=== PATIENT | male | born 1965 | race Caucasian/White ===

== ENCOUNTER 2016-09-25 11:35 | Day surgery (SDC) | payer OTHER ==
[~2016-09-25] VITALS: Ht 175.3 cm; Wt 88.2 kg
[2016-09-25 12:22] VITALS: Ht 175.3 cm; Wt 88.2 kg
[2016-09-25] MEDS ORDERED: NO HOME MEDS (12:29)
[2016-09-25 12:54] VITALS: BP 151/98; PULSE 54; RESP 18
[2016-09-25] MEDS ORDERED: MIDAZOLAM 1 MG/ML 2 ML INJ ONE ×2 (13:40→13:41)
[2016-09-25] MEDS ORDERED: FENTAnyl 50 MCG/ML VIAL ONE (13:40)
--- NOTE | 2016-09-25 13:54 | GILP ---
DATE OF PROCEDURE: NAME OF PROCEDURE: Colonoscopy. SURGEON: Ashanti Borrero MD PREOPERATIVE DIAGNOSIS: Screening colonoscopy. POSTOPERATIVE DIAGNOSES 1. Colonoscopy all the way to the cecum. 2. Diverticulosis of the sigmoid colon. 3. Internal hemorrhoids. 4. No colon neoplasm was identified. INDICATION FOR THE PROCEDURE: Mr. Gabriel Warren is a 51-year-old male patient who was scheduled for screening colonoscopy. The procedure and possible complications are well explained to the patient. The patient understood and consented to the procedure. DESCRIPTION OF PROCEDURE: Under the influence of fentanyl and Versed, the colonoscope was carefully introduced in the rectum and under direct vision, it was advanced all the way to the cecum. FINDINGS: The patient had diverticulosis of the sigmoid colon. He also had internal hemorrhoids. No colon neoplasm was identified. He tolerated the procedure very well and there was no complication from the procedure. At the end o f the procedure, he was awake with stable vital signs and he was discharged home to the care of his family. IMPRESSION: 1. Colonoscopy all the way to the cecum. 2. Diverticulosis of the sigmoid colon. 3. Internal hemorrhoids. 4. No colon neoplasm was identified. PLAN: Next screening colonoscopy in 10 years. Dictated By: ASHANTI MORELOS/MARY Conf#: [id number] DID#: [id number]
[2016-09-25 14:01] VITALS: BP 157/104; PULSE 62; RESP 18
== END 2016-09-25 14:13 | disposition home or self-care (01) ==
LOC: GIL 11:35
PROVIDERS: ATTEND Internal Medicine Gastroenterology
DX: Z12.11 Encounter for screening for malignant neoplasm of colon (principal); K57.90 Diverticulosis of intestine, part unspecified, without perforation or abscess without bleeding; K64.4 Residual hemorrhoidal skin tags
CPT/HCPCS: 45378; J2250; J3010